=== PATIENT | female | born 1945 | race African-American/Black ===

== ENCOUNTER → 2017-01-28 16:22 | Outpatient (CLI) | payer MEDICARE | END | disposition home or self-care (01) | LOC: D.CT 16:22 | DX: R91.1 Solitary pulmonary nodule (principal) ==

== ENCOUNTER 2017-01-30 19:57 | Emergency (ER) | payer MEDICARE | END 2017-01-30 22:30 | disposition home or self-care (01) | LOC: D.ER 19:57 | DX: J01.90 Acute sinusitis, unspecified (principal); J02.9 Acute pharyngitis, unspecified; J30.9 Allergic rhinitis, unspecified; I10 Essential (primary) hypertension ==

== ENCOUNTER 2017-02-04 20:17 | Emergency (ER) | payer MEDICARE | END 2017-02-04 21:48 | disposition left against medical advice (07) | LOC: D.ER 20:17 | DX: R21 Rash and other nonspecific skin eruption (principal) ==

== ENCOUNTER 2018-10-06 13:19 | Emergency (ER) | payer MEDICARE ==
[~2018-10-06] VITALS: Ht 154.9 cm; Wt 90.0 kg
[2018-10-06 13:26] VITALS: Ht 154.9 cm; Wt 90.0 kg
[2018-10-06] MEDS ORDERED: HYDROCHLOROTHIA25 MG PO (13:27)
[2018-10-06] MEDS ORDERED: NORVASC5 MG PO (13:27)
[2018-10-06] MEDS ORDERED: TORADOL10 MG PO (16:01)
[2018-10-06 16:27] VITALS: BP 139/66
== END 2018-10-06 16:27 | disposition home or self-care (01) ==
LOC: D.ER 13:19
DX: S29.012A Strain of muscle and tendon of back wall of thorax, initial encounter (principal); V43.52XA Car driver injured in collision with other type car in traffic accident, initial encounter; Y93.89 Activity, other specified; Y92.410 Unspecified street and highway as the place of occurrence of the external cause; I10 Essential (primary) hypertension

== ENCOUNTER 2021-05-28 16:00 | Outpatient (CLI) | payer OTHER, MEDICAID ==
[2018-10-06 13:26] VITALS: BMI 37.5
[~2021-05-28 16:00] MED LIST: HYDROCHLOROTHIA25 MG PO; NORVASC5 MG PO; TORADOL10 MG PO
== END 2021-05-28 23:59 | disposition home or self-care (01) ==
LOC: D.MAMMO 16:00
PROVIDERS: ATTEND Nurse Practitioner Family
DX: Z12.31 Encounter for screening mammogram for malignant neoplasm of breast (principal)